=== PATIENT | male | born 1980 | race Caucasian/White ===

== ENCOUNTER → 2016-10-08 17:39 | Emergency (ER) | payer BC ==
--- NOTE | 2016-10-08 18:43 | RAD ---
HISTORY: Right wrist pain, trauma COMPARISONS: None VIEWS: 3, Frontal, lateral, and oblique views of the right wrist FINDINGS: BONE DENSITY: Normal. BONES: There is no displaced fracture. JOINTS: There is no arthropathy. ALIGNMENT: There is no dislocation. SOFT TISSUES: Unremarkable. OTHER FINDINGS: None. IMPRESSION: NO ACUTE OSSEOUS INJURY. IF SYMPTOMS PERSIST, RECOMMEND REPEAT IMAGING.
[2016-10-08 18:51] VITALS: BP 109/61
--- NOTE | 2016-10-08 18:53 | ED ---
Upper Extremity Pain - HPI Summary HPI Summary: 36M presents with right wrist pain since yesterday s/p over extending it. He was at a baseball game and went to hit the ball and threw his wrist farther than normal. He states it hurts mostly to flex his wrist. He denies any numbness or tingling. He is right handed. 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 He took some ibuprofen for pain. Pain is 3/10. - History of Current Complaint Chief Complaint: EDExtremityUpper Stated Complaint: RT WRIST INJURY Time Seen by Provider: 10/08/16 18:07 - Allergies/Home Medications Allergies/Adverse Reactions: Allergies Allergy/AdvReac Type Severity Reaction Status Date / Time Mercaptopurine Allergy Severe pancreatiti Verified 09/09/16 11:57 s Penicillins Allergy Severe Difficulty Verified 09/09/16 11:57 Breathing Sulfa Antibiotics Allergy Severe Hives Verified 09/09/16 11:57 PMH/Surg Hx/FS Hx/Imm Hx Endocrine/Hematology History: Denies: Hx Anticoagulant Therapy, Hx Diabetes Cardiovascular History: Denies: Hx Hypertension Infectious Disease History: No Infectious Disease History: Denies: Traveled Outside the [place] in Last 30 Days - Family History Known Family History: Positive: Hypertension - Social History Alcohol Use: Occasionally Substance Use Type: Reports: None Smoking Status (MU): Former Smoker Amount Used/How Often: occassional smoking few cigarettes a week Have You Smoked in the Last Year: Yes Review of Systems Negative: Fever Negative: Chest Pain Negative: Shortness Of Breath Positive: Myalgia - right wrist pain All Other Systems Reviewed And Are Negative: Yes Physical Exam Triage Information Reviewed: Yes Vital Signs On Initial Exam: Initial Vitals Temp Pulse Resp BP Pulse Ox 97.8 F 57 16 112/62 100 10/08/16 17:50 10/08/16 17:50 10/08/16 17:50 10/08/16 17:50 10/08/16 17:50 Vital Signs Reviewed: Yes Appearance: Positive: Well-Appearing Skin: Positive: Warm, Dry Head/Face: Positive: Normal Head/Face Inspection Eyes: Positive: Normal, Conjunctiva Clear Respiratory/Lung Sounds: Positive: Clear to Auscultation, Breath Sounds Present Cardiovascular: Positive: Normal, RRR Musculoskeletal: Positive: Strength/ROM Intact - fingers, Limited @ - wrist with pain, Other - good pulses, capillary refill < 2 secs, tenderness over dorsal wrist with mild edema, Diagnostics - Vital Signs Vital Signs Temp Pulse Resp BP Pulse Ox 10/08/16 18:45 99.1 F 61 17 109/61 100 10/08/16 17:50 97.8 F 57 16 112/62 100 - Laboratory Lab Statement: Any lab studies that have been ordered have been reviewed, and results considered in the medical decision making process. - Radiology wrist Xray Interpretation: No Acute Changes - IMPRESSION: NO ACUTE OSSEOUS INJURY. IF SYMPTOMS PERSIST, RECOMMEND REPEAT IMAGING. Radiology Interpretation Completed By: Radiologist Course/Dx - Course Course Of Treatment: 36F presents with right wrist pain s/p hyperextending it yesterday at baseball game. still able to move it just has pain. denies any numbness or tingling, no step off on exam. neurovascular intact. xray normal. will treat as sprain with RICE. patient understands and agrees with plan - Diagnoses Differential Diagnosis/HQI/PQRI: Positive: Fracture (Closed), Strain, Sprain Provider Diagnoses: Right wrist injury Discharge - Discharge Plan Condition: Good Disposition: HOME Patient Education Materials: Wrist Sprain (ED) Referrals: Nba Hernandez MD [Primary Care Provider] - Additional Instructions: Keep steven wrap on area Take Tylenol or ibuprofen every 6 hours as needed for pain Apply ice, rest, elevate Follow up with primary care physician within 5 days if no improvement Return to ED if develop any new or worsening symptoms
== END | disposition home or self-care (01) ==
LOC: ED 17:39
DX: S69.91XA Unspecified injury of right wrist, hand and finger(s), initial encounter (principal); M25.531 Pain in right wrist; Z87.891 Personal history of nicotine dependence; X50.0XXA Overexertion from strenuous movement or load, initial encounter; X50.9XXA Other and unspecified overexertion or strenuous movements or postures, initial encounter; Y93.64 Activity, baseball; Y92.9 Unspecified place or not applicable
CPT/HCPCS: 99281

== ENCOUNTER 2018-01-16 12:26 | Emergency (ER) | payer BC ==
[2018-01-16] MEDS ORDERED: NS 0.9% 1000 ML* 1,000 ML IV ONE (13:28)
[2018-01-16 13:48] LABS: ABS Basophils 0 10^3/ul (0-0.2); ABS Eosinophils 0.2 10^3/ul (0-0.6); ABS Lymphocytes 1.5 10^3/ul (1.0-4.8); ABS Monocytes 0.6 10^3/ul (0-0.8); ABS Neutrophils 7.5 10^3/ul (1.5-7.7); ABS Nucleated RBC 0 10^3/ul; Eosinophil % 2.4 % (0-6); Hematocrit 43 % (42-52); Hemoglobin 14.8 g/dl (14.0-18.0); Lymphocyte % 14.9 % (25-47); Mean Corpuscular HGB Conc 35 g/dl (31-36); Mean Corpuscular Hemoglobin 30 pg (27-31); Mean Corpuscular Volume 88 fL (80-94); Mean Platelet Volume 7.9 um3 (7.4-10.4); Nucleated Red Blood Cells % 0.2; Platelet Count 234 10^3/ul (150-450); Red Blood Count 4.89 10^6/ul (4.00-5.40); Red Cell Distribution Width 14 % (10.5-15); White Blood Count 9.8 10^3/ul (3.5-10.8)
[2018-01-16] MEDS ORDERED: Iohexol 300* (CONTRAST) 10 ML SDV IV ONE (14:40)
--- NOTE | 2018-01-16 15:32 | RAD ---
HISTORY: abd pain, s/p colonoscopy yesterday COMPARISONS: None VIEWS: Frontal views of the abdomen. FINDINGS: BOWEL: There is a nonspecific bowel gas pattern, with nondilated small bowel gas noted. Oral contrast is noted within the colon. CALCULI: There are no abnormal calculi. BONES AND SOFT TISSUES: There are no osseous abnormalities. OTHER FINDINGS: The lung bases are clear. There is no subphrenic gas. IMPRESSION: NONSPECIFIC BOWEL GAS PATTERN, THOUGH ORAL CONTRAST IS NOTED WITHIN THE COLON.
--- NOTE | 2018-01-16 15:55 | PN ---
Progress Note - Progress Note Date of Service: 01/16/18 Note: GI NOTE I was notified by my office staff that Mr Leonard had presented to the ED with complaints of significant abdominal pain post-colonoscopy yesterday. Colonoscopy yesterday was uncomplicated and demonstrated chronic changes of ulcerative colitis. There was no active colitis. Biopsies were taken as part of standard dysplasia screening. Patient tolerated the procedure well and recovered nicely before going home. No abdominal pain or distention noted post- colonoscopy. I saw Mr Leonard and his and mother in the ED waiting room. He reported onset of abdominal discomfort yesterday evening, which has persisted throughout today. He denies any nausea/vomiting. Not passing much flatus or stool. Vitals in ED triage were unremarkable. He appeared comfortable but tired sitting in wheelchair. His heart and lung exams were normal. Abdomen had presence of bowel sounds and tenderness with palpation diffusely. No rigidity or distention noted. I spoke with Dr Garcia in the ED. Labs were ordered (CBC, CMP) as was KUB and CT abdomen/pelvis to rule-out perforation or other acute finding. I will follow along with the clinical course and results.
[2018-01-16] MEDS ORDERED: oxyCODONE/Acetamin 5/325 MG* TAB PO ONE ×2 (16:24→20:58)
--- NOTE | 2018-01-16 17:20 | RAD ---
CLINICAL HISTORY: R/O PERFORATION, status post colonoscopy, abdominal pain, history of ulcerative colitis COMPARISON: May 20, 2013 TECHNIQUE: Multiple contiguous axial CT scans were obtained of the abdomen and pelvis after the administration of intravenous contrast. Coronal and sagittal multiplanar reformations are submitted for review. Oral contrast was administered. Delayed images were obtained through the abdomen. FINDINGS: LUNG BASES: The lung bases are clear. LIVER: The liver is diffusely low in attenuation compared to the spleen. There are no focal hepatic parenchymal masses. BILE DUCTS: There is no intrahepatic or extrahepatic biliary dilatation. GALLBLADDER: The gallbladder is normal, without pericholecystic inflammatory change. PANCREAS: The pancreas is normal, without mass or ductal dilatation. SPLEEN: Normal in size and appearance. UPPER GI TRACT: Evaluation of the gastrointestinal tract is limited by incomplete gastric distention. The upper GI tract is unremarkable. SMALL BOWEL AND MESENTERY: The small bowel is normal in contour, course, and caliber. There is no obstruction or dilatation. COLON: There is diffuse mucosal thickening of the colon which is relatively featureless. There is some mucosal fatty infiltration of the rectum consistent with chronic inflammation. ADRENALS: Normal bilaterally. KIDNEYS: The kidneys are normal in shape, size, contour, and axis. There is no hydronephrosis or nephrolithiasis. BLADDER: The bladder is incompletely distended but is grossly normal. PELVIC ORGANS: The prostate gland is normal. The seminal vesicles are symmetric. AORTA: The aorta is normal. IVC: Unremarkable LYMPH NODES: There is no lymphadenopathy by size criteria. ABDOMINAL WALL: There is no evidence for abdominal wall hernia. BONES AND SOFT TISSUES: There is mild degenerative disc disease. OTHER: There is no free intraperitoneal fluid or free intracranial gas. IMPRESSION: 1. COLONIC MUCOSAL THICKENING. THE COLON IS RELATIVELY FEATURELESS. THIS IS CONSISTENT WITH THE GIVEN HISTORY OF ULCERATIVE COLITIS. 2. NO FREE INTRAPERITONEAL FLUID OR FREE INTRAPERITONEAL GAS
[2018-01-16] MEDS ORDERED: Simethicone TAB* 80 MG TAB.CHEW PO ONE (18:56)
[2018-01-16] MEDS ORDERED: NS 0.9% 1000 ML* 2,000 ML IV ONE (18:56)
--- NOTE | 2018-01-16 20:14 | ED ---
Abdominal Pain/Male - HPI Summary HPI Summary: This patient is a 37 year old F presenting to [facility] accompanied by his family with a chief complaint of severe diffuse abd pain since last PM s/p a colonoscopy. Pt endorses Percocet helps sx. Pt denies passing any gas and emesis. He endorses nausea last PM, and current diarrhea. Pt denies having eaten in 3 days. PMHx chronic ulcerative colitis. - History of Current Complaint Chief Complaint: EDAbdPain Stated Complaint: ABD PAIN Hx Obtained From: Patient Onset/Duration: Sudden Onset, Lasting Hours, Still Present Timing: Constant Severity Initially: Severe Severity Currently: Severe Pain Intensity: 9 Pain Scale Used: 0-10 Numeric Location: Diffuse Radiates: No Associated Signs And Symptoms: Positive: Decreased Appetite, Nausea, Diarrhea. Negative: Fever, Chest Pain, Back Pain, Constipation, Blood in Stool, Vomiting - Allergies/Home Medications Allergies/Adverse Reactions: Allergies Allergy/AdvReac Type Severity Reaction Status Date / Time mercaptopurine Allergy Severe See Comment Verified 01/16/18 12:30 Penicillins Allergy Severe Difficulty Verified 01/16/18 12:30 Breathing Sulfa (Sulfonamide Allergy Severe Hives Verified 01/16/18 12:30 Antibiotics) amoxicillin Allergy Unknown Verified 01/16/18 12:30 Reaction Details prednisone Allergy Unknown Verified 01/16/18 12:30 Reaction Details PMH/Surg Hx/FS Hx/Imm Hx Endocrine/Hematology History: Denies: Hx Anticoagulant Therapy, Hx Diabetes Cardiovascular History: Denies: Hx Hypertension GI History: Reports: Other GI Disorders - chronic ulcerative colitis History: Denies: Hx Dialysis Sensory History: Denies: Hx Legally Blind, Hx Deafness Opthamlomology History: Denies: Hx Legally Blind EENT History: Denies: Hx Deafness Neurological History: Denies: Hx Dementia Psychiatric History: Denies: Hx Schizophrenia Infectious Disease History: No Infectious Disease History: Denies: Traveled Outside the [place] in Last 30 Days - Family History Known Family History: Positive: Hypertension - Social History Occupation: Employed Full-time Alcohol Use: None Substance Use Type: Reports: None Smoking Status (MU): Former Smoker Amount Used/How Often: occassional smoking few cigarettes a week Have You Smoked in the Last Year: Yes Review of Systems Negative: Fever Negative: Blurred Vision, Diplopia Negative: Sore Throat, Ear Ache Negative: Chest Pain Negative: Shortness Of Breath Positive: Abdominal Pain, Diarrhea, Nausea. Negative: Vomiting, Other - blood in stool Positive: no symptoms reported. Negative: dysuria, hematuria Negative: Arthralgia, Myalgia Negative: Rash Negative: Headache Negative: Anxious, Depressed All Other Systems Reviewed And Are Negative: No Physical Exam - Summary Physical Exam Summary: Appearance: Alert, conversive, nontoxic appearing Skin: Warm, dry, no mottling, no rashes, no contusions HEENT: EOMI, PERRL, moist mucous membranes Neck: No masses on the neck, supple Respiratory: Clear to auscultation, breath sounds present, no rales, no rhonchi , no wheezes Cardiovascular: RRR, pulses are symmetrical in both lower and upper extremities Abdomen: Soft, diffuse moderate abd pain Bowel Sounds: Present Musculoskeletal: No CVA tenderness, no obvious deformity, moving all extremities in a grossly normal manner Neurological: A&Ox3, CN II-XII Intact, moving all extremities symmetrically Psychiatric: Normal affect and mood Triage Information Reviewed: Yes Vital Signs On Initial Exam: Initial Vitals Temp Pulse Resp BP Pulse Ox 98.4 F 72 16 104/60 97 01/16/18 12:30 01/16/18 12:30 01/16/18 12:30 01/16/18 12:30 01/16/18 12:30 Vital Signs Reviewed: Yes Diagnostics - Vital Signs Vital Signs Temp Pulse Resp BP Pulse Ox 01/16/18 16:30 18 01/16/18 14:20 97.8 F 62 14 105/65 100 01/16/18 12:30 98.4 F 72 16 104/60 97 - Laboratory Lab Results: Lab Results 01/16/18 01/16/18 Range/Units 13:35 13:35 WBC 9.8 (3.5-10.8) 10^3/ul RBC 4.89 (4.00-5.40) 10^6/ul Hgb 14.8 (14.0-18.0) g/dl Hct 43 (42-52) % MCV 88 (80-94) fL MCH 30 (27-31) pg MCHC 35 (31-36) g/dl RDW 14 (10.5-15) % Plt Count 234 (150-450) 10^3/ul MPV 7.9 (7.4-10.4) um3 Neut % (Auto) 76.1 (38-83) % Lymph % (Auto) 14.9 L (25-47) % [place] % (Auto) 6.3 (0-7) % Eos % (Auto) 2.4 (0-6) % Baso % (Auto) 0.3 (0-2) % Absolute Neuts (auto) 7.5 (1.5-7.7) 10^3/ul Absolute Lymphs (auto) 1.5 (1.0-4.8) 10^3/ul Absolute Monos (auto) 0.6 (0-0.8) 10^3/ul Absolute Eos (auto) 0.2 (0-0.6) 10^3/ul Absolute Basos (auto) 0 (0-0.2) 10^3/ul Absolute Nucleated RBC 0 10^3/ul Nucleated RBC % 0.2 Sodium 137 (135-145) mmol/L Potassium 4.3 (3.5-5.0) mmol/L Chloride 104 (101-111) mmol/L Carbon Dioxide 30 (22-32) mmol/L Anion Gap 3 (2-11) mmol/L BUN 12 (6-24) mg/dL Creatinine 0.98 (0.67-1.17) mg/dL Est GFR ( Amer) 105.3 (>60) Est GFR (Non-Af Amer) 87.0 (>60) BUN/Creatinine Ratio 12.2 (8-20) Glucose 95 (70-100) mg/dL Calcium 9.4 (8.6-10.3) mg/dL Total Bilirubin 0.60 (0.2-1.0) mg/dL AST 20 (13-39) U/L ALT 20 (7-52) U/L Alkaline Phosphatase 56 (34-104) U/L Total Protein 7.0 (6.4-8.9) g/dL Albumin 4.3 (3.2-5.2) g/dL Globulin 2.7 (2-4) g/dL Albumin/Globulin Ratio 1.6 (1-3) Result Diagrams: 01/16/18 13:35 01/16/18 13:35 Lab Statement: Any lab studies that have been ordered have been reviewed, and results considered in the medical decision making process. - Radiology abd XR Xray Interpretation: No Acute Changes Radiology Interpretation Completed By: Radiologist - CT A/P CT Interpretation: No Acute Changes CT Interpretation Completed By: Radiologist - 1. COLONIC MUCOSAL THICKENING. THE COLON IS RELATIVELY FEATURELESS. THIS IS CONSISTENT WITH THE GIVEN HISTORY OF ULCERATIVE COLITIS. 2. NO FREE INTRAPERITONEAL FLUID OR FREE INTRAPERITONEAL GAS. Dr. Garcia has reviewed this report. Abdominal Pain Fem Course/Dx - Course Course Of Treatment: A 37 y/o pt with diffuse abd pain. He had a colonoscopy yesterday 01/15/18, and endorses current diarrhea and abd pain. He denies emesis , and endorses resolved nausea. A CT A/P revealed no acute changes or pathology , and an abd XR revealed NONSPECIFIC BOWEL GAS PATTERN, THOUGH ORAL CONTRAST IS NOTED WITHIN THE COLON. - Diagnoses Provider Diagnoses: Abdominal pain - Provider Notifications Discussed Care Of Patient With: Saniya Beltran Time Discussed With Above Provider: 17:38 Instructed by Provider To: Other - Reviewed CT, doesnt feel there are any acute findings, will evaluate pt in ED. Discharge - Sign-Out/Discharge Documenting (check all that apply): Patient Departure - discharge - Discharge Plan Condition: Stable Disposition: HOME Prescriptions: Oxycodone HCl/Acetaminophen [Percocet] 2 tab PO Q6H #30 tab MDD 8 Patient Education Materials: Acute Abdominal Pain (ED) Referrals: Corinne Patricio PA [Primary Care Provider] - Additional Instructions: Return if worse or any new symptoms. Take the percocet for pain. please follow up with your primary care physician and your women's health care nurse practitioner next week. TAke all other pain medications as previously instructed. - Attestation Statements Document Initiated by Scribe: Yes Documenting Scribe: Trung Vieyra Provider For Whom Scribe is Documenting (Include Credential): Dr. Shelley Garcia MD Scribe Attestation: Trung Austin, scribed for Dr. Shelley Garcia MD on 01/16/18 at 2102.
[2018-01-16 22:13] VITALS: BP 125/69
== END 2018-01-16 21:00 | disposition home or self-care (01) ==
LOC: ED 12:26
DX: R10.9 Unspecified abdominal pain (principal); R11.0 Nausea; R19.7 Diarrhea, unspecified; Z88.1 Allergy status to other antibiotic agents; Z87.891 Personal history of nicotine dependence
CPT/HCPCS: 36415; 74018; 74177; 80053; 85025; 96360; 99282; A9270-GY; Q9967

== ENCOUNTER 2019-01-27 19:37 | Emergency (ER) | payer BC ==
--- OUTSIDE RECORDS SUMMARY | 2019-01-27 19:56 | XMS REPORT | Continuity of Care Document ---
:1980 External Reference #:[id number] Author Name Saniya Beltran MD Address [address] [place] [id number] Care Team Providers Name Role Phone Graeme Palacio MD Care Team Information Form Setter [phone] Problems Active Problems Provider Date Ulcerative colitis Nba Hernandez MD Onset: 06/25/2013 Chronic ulcerative pancolitis Corinne Patricio PA-C Onset: 01/14/2017 Social History Type Date Description Comments Sex Unknown Tobacco Use Start: Unknown Patient has never smoked Smoking Status Reviewed: 09/29/18 Patient has never smoked Allergies, Adverse Reactions, Alerts Active Allergies Reaction Severity Comments Date Penicillin 11/25/2012 Sulfasalazine 11/25/2012 Amoxicillin 07/19/2016 Prednisone 07/19/2016 Medications Active Medications SIG Qnty Indications Ordering Provider Date Xifaxan take 1 tablet 42tabs Saniya 10/06/2018 550mg Tablets three times a MD Ruby day for 14 days. Entyvio every 8 weeks Nba Hernandez 03/07/2015 300mg Solution Rec Immunizations Description No Information Available Vital Signs Date Vital Result Comment 09/29/2018 1:10pm Height 66 inches 5'6" Weight 151.00 lb BP Systolic 114 mmHg BP Diastolic 64 mmHg Heart Rate 61 /min BMI (Body Mass Index) 24.4 kg/m2 05/04/2018 4:08pm Height 66 inches 5'6" Weight 148.00 lb with shoes BP Systolic 123 mmHg BP Diastolic 68 mmHg Heart Rate 52 /min BMI (Body Mass Index) 23.9 kg/m2 Results Test Date Facility Test Result H/L Range Note Laboratory test 12/09/2018 [facility] Vedolizumab QN 23.9 g/mL 1 finding w/Reflex CBC W/Auto 10/14/2018 [facility] White Blood Count 5.9 10^3/uL Normal 3.5-10.8 Differential(!) Red Blood Count 4.74 10^6/uL Normal 4.18-5.48 Hemoglobin 14.5 g/dL Normal 14.0-18.0 Hematocrit 42 % Normal 42-52 Mean Corpuscular Volume 88 fL Normal 80-94 Mean Corpuscular Hemoglobin 31 pg Normal 27-31 Mean Corpuscular HGB Conc 35 g/dL Normal 31-36 Red Cell Distribution Width 13 % Normal 10-15 Platelet Count 234 10^3/uL Normal 150-450 Mean Platelet Volume 7.9 fL Normal 7.4-10.4 Abs Neutrophils 3.6 10^3/uL Normal 1.5-7.7 Abs Lymphocytes 1.8 10^3/uL Normal 1.0-4.8 Abs Monocytes 0.4 10^3/uL Normal 0-0.8 Abs Eosinophils 0.2 10^3/uL Normal 0-0.6 Abs Basophils 0.0 10^3/uL Normal 0-0.2 Abs Nucleated RBC 0.0 10^3/uL Granulocyte % 59.7 % Lymphocyte % 30.0 % Monocyte % 7.0 % Eosinophil % 3.0 % Basophil % 0.3 % Nucleated Red Blood Cells % 0.0 CMP(!) 10/14/2018 [facility] Sodium 137 mmol/L Normal 135-145 Potassium 4.2 mmol/L Normal 3.5-5.0 Chloride 105 mmol/L Normal 101-111 Co2 Carbon Dioxide 25 mmol/L Normal 22-32 Anion Gap 7 mmol/L Normal 2-11 Glucose 102 mg/dL High 70-100 Blood Urea Nitrogen 17 mg/dL Normal 6-24 Creatinine 0.91 mg/dL Normal 0.67-1.17 BUN/Creatinine Ratio 18.7 Normal 8-20 Calcium 9.3 mg/dL Normal 8.6-10.3 Total Protein 6.9 g/dL Normal 6.4-8.9 Albumin 4.3 g/dL Normal 3.2-5.2 Globulin 2.6 g/dL Normal 2-4 Albumin/Globulin Ratio 1.7 Normal 1-3 Total Bilirubin 0.60 mg/dL Normal 0.2-1.0 Alkaline Phosphatase 62 U/L Normal 34-104 Alt 22 U/L Normal 7-52 Ast 24 U/L Normal 13-39 Egfr Non- 94.3 >60 Egfr 114.1 >60 2 Laboratory test finding 10/14/2018 [facility] C-Reative Protein <pending> <5.0 Laboratory test finding 10/14/2018 [facility] C Reactive Protein < 1.00 mg/L Normal <8.01 Vitamin D Total 25(Oh) 30.3 ng/mL Normal 20-50 3 1 For concentrations of vedolizumab less than or equal to 15.0 mcg/mL, reflex testing for [id number] will be performed. REFERENCE VALUE Lower limit of quantitation = 2.0 mcg/mL ADDITIONAL INFORMATION This test was developed and its performance characteristics determined by [facility] in a manner consistent with CLIA requirements. This test has not been cleared or approved by the U.S. Food and Drug Administration. Test Performed by: [facility] [address], [place] [address] 2 Because ethnic data is not always readily available, this report includes an eGFR for both -Americans and non- Americans. The National Kidney Disease Education Program (NKDEP) does not endorse the use of the MDRD equation for patients that are not between the ages of 18 and 70, are , have extremes of body size, muscle mass, or nutritional status, or are non- or non-. According to the National Kidney Foundation, irrespective of diagnosis, the stage of the disease is based on the level of kidney function: Stage Description GFR(mL/min/1.73 m(2)) 1 Kidney damage with normal or decreased GFR 90 2 Kidney damage with mild decrease in GFR 60-89 3 Moderate decrease in GFR 30-59 4 Severe decrease in GFR 15-29 5 Kidney failure <15 (or dialysis) 3 Total 25-Hydroxyvitamin D2 and D3 (25-OH-VitD) <10 ng/mL (severe deficiency) 10-19 ng/mL (mild to moderate deficiency) 20-50 ng/mL (optimum levels) 51-80 ng/mL (increased risk of hypercalciuria) >80 ng/mL (toxicity possible) Procedures Description No Information Available Medical Devices Description No Information Available Encounters Type Date Location Provider Dx Diagnosis Office Visit 09/29/2018 Gastroenterology Saniya K51.90 Ulcerative colitis , 1:[facility] wu Beltran MD without complications K58.0 Irritable bowel syndrome with diarrhea Assessments Date Code Description Provider 09/29/2018 K51.90 Ulcerative colitis, unspecified, without Saniya Lantigua MD complications 09/29/2018 K58.0 Irritable bowel syndrome with diarrhea Saniya Beltran MD Plan of Treatment Future Appointment(s):02/02/2019 1:30 pm - Saniya Beltran MD [facility]09/29/2018 - Saniya Beltran MDK51.90 Ulcerative colitis, unspecified, without [id number] Irritable bowel syndrome with diarrhea Functional Status Description No Information Available Mental Status Description No Information Available Referrals Description No Information Available
--- NOTE | 2019-01-27 22:09 | ED ---
Upper Extremity Pain - HPI Summary HPI Summary: Patient complains of left shoulder pain from fall during soccer game yesterday. Denies any other pain, injury or symptoms. - History of Current Complaint Chief Complaint: EDShoulderClavicleInj Stated Complaint: LT SHOULDER INJUIRY PER PT Time Seen by Provider: 01/27/19 21:25 Hx Obtained From: Patient Mechanism Of Injury: Blunt Trauma Onset/Duration: Started Hours Ago Timing: Intermittent Severity Initially: Moderate Severity Currently: Moderate Pain Location: Shoulder Character: Aching Aggravating Factor(s): Movement Alleviating Factor(s): OTC Meds Associated Signs & Symptoms: Positive: Negative - Allergies/Home Medications Allergies/Adverse Reactions: Allergies Allergy/AdvReac Type Severity Reaction Status Date / Time mercaptopurine Allergy Severe See Comment Verified 01/27/19 19:51 Penicillins Allergy Severe Difficulty Verified 01/27/19 19:51 Breathing Sulfa (Sulfonamide Allergy Severe Hives Verified 01/27/19 19:51 Antibiotics) amoxicillin Allergy Unknown Verified 01/27/19 19:51 Reaction Details prednisone Allergy Unknown Verified 01/27/19 19:51 Reaction Details PMH/Surg Hx/FS Hx/Imm Hx Endocrine/Hematology History: Denies: Hx Anticoagulant Therapy, Hx Diabetes Cardiovascular History: Denies: Hx Hypertension GI History: Reports: Other GI Disorders - chronic ulcerative colitis History: Denies: Hx Dialysis Sensory History: Denies: Hx Legally Blind, Hx Deafness Opthamlomology History: Denies: Hx Legally Blind Neurological History: Denies: Hx Dementia Psychiatric History: Denies: Hx Schizophrenia - Immunization History Immunizations Up to Date: Yes Infectious Disease History: No Infectious Disease History: Denies: Traveled Outside the [place] in Last 30 Days - Family History Known Family History: Positive: Hypertension - Social History Alcohol Use: None Substance Use Type: Reports: None Smoking Status (MU): Former Smoker Amount Used/How Often: occassional smoking few cigarettes a week Have You Smoked in the Last Year: Yes Review of Systems Constitutional: Negative Eyes: Negative ENT: Negative Cardiovascular: Negative Respiratory: Negative Gastrointestinal: Negative Genitourinary: Negative Musculoskeletal: Other Skin: Negative Neurological: Negative Psychological: Normal All Other Systems Reviewed And Are Negative: Yes Physical Exam - Summary Physical Exam Summary: Full range of motion of left shoulder. Mild pain with palpation. No ecchymosis , erythema, deformity, swelling noted. PMS intact distally. Normal flexion and extension of left elbow and left wrist. 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 Triage Information Reviewed: Yes Vital Signs On Initial Exam: Initial Vitals Temp Pulse Resp BP Pulse Ox 98.8 F 62 16 135/81 99 01/27/19 19:45 01/27/19 19:45 01/27/19 19:45 01/27/19 19:45 01/27/19 19:45 Vital Signs Reviewed: Yes Appearance: Positive: Well-Appearing Skin: Positive: Warm Head/Face: Positive: Normal Head/Face Inspection Eyes: Positive: Normal Neck: Positive: Supple Respiratory/Lung Sounds: Positive: Clear to Auscultation Cardiovascular: Positive: Normal Abdomen Description: Positive: Nontender Musculoskeletal: Positive: Normal Neurological: Positive: Normal Psychiatric: Positive: Normal AVPU Assessment: Alert - Shyla Coma Scale Best Eye Response: 4 - Spontaneous Best Motor Response: 6 - Obeys Commands Best Verbal Response: 5 - Oriented Coma Scale Total: 15 Procedures - Sedation Patient Received Moderate/Deep Sedation with Procedure: No Diagnostics - Vital Signs Vital Signs Temp Pulse Resp BP Pulse Ox 01/27/19 19:45 98.8 F 62 16 135/81 99 - Laboratory Lab Statement: Any lab studies that have been ordered have been reviewed, and results considered in the medical decision making process. Course/Dx - Course Course Of Treatment: Patient complains of left shoulder pain from fall during soccer game yesterday. Denies any other pain, injury or symptoms. Vital signs within normal limits. X-ray negative. - Diagnoses Provider Diagnoses: Left shoulder strain Discharge ED - Sign-Out/Discharge Documenting (check all that apply): Patient Departure - Discharge Plan Condition: Stable Disposition: HOME Patient Education Materials: Shoulder Sprain (ED) Referrals: Corinne Patricio PA [Primary Care Provider] - Adarsh Jackson MD [Medical Doctor] - Additional Instructions: Rest, ice and ibuprofen. Move gently to promote blood flow. If symptoms do not improve in 5-7 days follow-up with orthopedics Dr. Angella Jackson for further evaluation. - Billing Disposition and Condition Condition: STABLE Disposition: Home - Attestation Statements Provider Attestation: I was available for consult. This patient was seen by the RONALD. The patient was not presented to, seen by, or examined by me. Raj Becerra MD
[2019-01-27 22:30] VITALS: BP 115/72
== END 2019-01-27 22:30 | disposition home or self-care (01) ==
LOC: ED 19:37
DX: S43.402A Unspecified sprain of left shoulder joint, initial encounter (principal); F17.210 Nicotine dependence, cigarettes, uncomplicated; W19.XXXA Unspecified fall, initial encounter; Y93.66 Activity, soccer; Y92.9 Unspecified place or not applicable; Z88.0 Allergy status to penicillin; Z88.2 Allergy status to sulfonamides; Z88.8 Allergy status to other drugs, medicaments and biological substances
CPT/HCPCS: 99281